=== PATIENT | female | born 1935 | race Caucasian/White ===

== ENCOUNTER 2017-10-12 11:05 | Emergency (ER) | payer MEDICARE, BC ==
[~2017-10-12] VITALS: Ht 162.6 cm; Wt 70.0 kg
[2017-10-12 11:06] VITALS: BP 162/83; PULSE 115; RESP 17; TEMP 97.6; O2SAT 96
[2017-10-12 11:32] VITALS: BP 163/78; PULSE 68; RESP 14; O2SAT 96
--- NOTE | 2017-10-12 11:35 | PD ---
HPI Chief Complaint: Foreign Body Time Seen by Provider: 11:30 Travel History International Travel<30 days: No Contact w/Intl Traveler<30days: No Traveled to known affect area: No History of Present Illness HPI 81-year-old female patient from her dentist office, after she apparently swallowed a dental screwdriver while getting her implants done today. She denies feeling any foreign body sensation, denies any abdominal discomfort. Modifying Factors: None Associated Signs & Symptoms: swallowed screwdriver at dental office Risk Factors: None PFSH Past Medical History Cardiovascular Problems: Yes (HTN) Social History Tobacco Use: No Allergies-Medications (Allergen,Severity, Reaction): Coded Allergies: amoxicillin (Verified Allergy, Severe, Hives, 10/12/17) morphine (Verified Allergy, Severe, Nausea/Vomiting, 10/12/17) Reported Meds & Prescriptions Reported Meds & Active Scripts Active Reported Meloxicam 15 Mg Tab 15 Mg PO DAILY Aspirin 81 Mg Chew 81 Mg CHEW DAILY Montelukast (Montelukast Sodium) 10 Mg Tab 10 Mg PO DAILY Lexapro (Escitalopram Oxalate) 5 Mg Tab Unknown Dose PO DAILY Lisinopril 5 Mg Tab 5 Mg PO DAILY Review of Systems Except as stated in HPI: all other systems reviewed are Neg Physical Exam Narrative GENERAL: Well-developed elderly white female patient currently in no acute distress. Awake oriented 3. SKIN: Focused skin assessment warm/dry. HEAD: Atraumatic. Normocephalic. EYES: Pupils equal and round. No scleral icterus. No injection or drainage. ENT: No nasal bleeding or discharge. Mucous membranes pink and moist. Several right maxillary dental implant screws in place. Throat appears clear. No obvious trauma identified. NECK: Trachea midline. No JVD. CARDIOVASCULAR: Regular rate and rhythm. No murmur appreciated. RESPIRATORY: No accessory muscle use. Clear to auscultation. Breath sounds equal bilaterally. GASTROINTESTINAL: Abdomen soft, non-tender, nondistended. Hepatic and splenic margins not palpable. MUSCULOSKELETAL: No obvious deformities. No clubbing. No cyanosis. No edema. NEUROLOGICAL: Awake and alert. No obvious cranial nerve deficits. Motor grossly within normal limits. Normal speech. PSYCHIATRIC: Appropriate mood and affect; insight and judgment normal. Data Data Last Documented VS Vital Signs Date Time Temp Pulse Resp B/P (MAP) Pulse Ox O2 Delivery O2 Flow Rate FiO2 10/12/17 11:32 68 14 163/78 (106) 96 Room Air 10/12/17 11:06 97.6 Orders Orders Abdomen, Kub Only (10/12/17 ) MDM Medical Decision Making Medical Screen Exam Complete: Yes Emergency Medical Condition: Yes Medical Record Reviewed: Yes Interpretation(s) Last 24 hours Impressions Abdomen X-Ray 10/12/17 0000 Signed Impressions: Service Date/Time: Thursday, October 12, 2017 11:38 - CONCLUSION: Metallic dental implant apparatus overlies the stomach. Jatin Yoder MD Differential Diagnosis Swallowed dental screwdriver Narrative Course Dental screwdriver was not identified on x-ray in the stomach. At this point, judging by the size of the screwdriver, this should be something that would pass on its own. There are no sharp edges seen on x-ray at on evaluation of the image of the object swallowed shown to me by dental nurses with the patient. At this point, my plan would be to release the patient with follow-up to general surgery. They can follow-up the passing of this metallic object. Return for any worsening in abdominal pain, or new symptoms as needed. The plan was not discussed with the patient she states understanding. Diagnosis Primary Impression: Swallowed foreign body Referrals: Jatin Greenfield MD 2 days Disposition: DISCHARGE HOME Condition: Stable Manuel Head MD Oct 12, 2017 11:35
--- NOTE | 2017-10-12 11:59 | RADRPT ---
EXAM DATE/TIME: 10/12/2017 11:38 [facility] COMPARISON: No previous studies available for comparison. INDICATIONS : Swallowed dental implant screwdriver at the dentist MEDICAL HISTORY : None. SURGICAL HISTORY : None. ENCOUNTER: Initial ACUITY: 1 day PAIN SCORE: 0/10 LOCATION: Bilateral abdomen FINDINGS: Supine view of the abdomen was performed. Radiopaque dental implant projects over stomach. The abdomi nal bowel gas pattern is normal. No abnormal masses, calcifications, or organomegaly is seen. The o sseous structures are unremarkable. CONCLUSION: Metallic dental implant apparatus overlies the stomach. Jatin Yoder MD on October 12, 2017 at 11:56 Board Certified Radiologist. This report was verified electronically.
[2017-10-12] MEDS ORDERED: LISI-519 PO (12:13)
[2017-10-12] MEDS ORDERED: MONT10TA4 PO (12:13)
[2017-10-12] MEDS ORDERED: ASPI-516 CHEW (12:13)
[2017-10-12] MEDS ORDERED: MELO15TA20 PO (12:13)
[2017-10-12] MEDS ORDERED: LEXA5TAB PO (12:13)
== END 2017-10-12 13:15 | disposition home or self-care (01) ==
LOC: NEPC 11:05
DX: T18.9XXA Foreign body of alimentary tract, part unspecified, initial encounter (principal); I10 Essential (primary) hypertension
CPT/HCPCS: 74018; 99283